=== PATIENT | female | born 1940 ===

== ENCOUNTER 2022-11-16 15:38 | Emergency (ER) | payer MEDICARE, SELFPAY ==
[2022-11-16 16:51] VITALS: BP 150/77; PULSE 71; RESP 14; TEMP 36.9; O2SAT 95
--- NOTE | 2022-11-16 19:04 | ED.GENADULT ---
HPI - General Adult General Chief complaint: Unspecified <EVERETTE Suarez Last Filed: 11/17/22 01:35> Stated complaint: thinks straight line has blood clot, will not draw <EVERETTE Suarez Last Filed: 11/17/22 01:35> Time Seen by Provider: 11/16/22 17:31 <EVERETTE Suarez Last Filed: 11/17/22 01:35> Source: patient <EVERETTE Suarez Last Filed: 11/17/22 01:35> Mode of arrival: ambulatory <EVERETTE Suarez Last Filed: 11/17/22 01:35> Limitations: no limitations <EVERETTE Suarez Last Filed: 11/17/22 01:35> History of Present Illness HPI narrative: This is an 82-year-old female who presents to the ED with chief complaint of a central line that is not drawing. Patient states that she has a central line for potassium infusions. She states she gets K+ infusions for chronic diarrhea. This is managed by her GI doctor. She states that the central line has not been able to draw for her home health nurse for the past 3 days. States she normally gets the potassium infusions every night and they try to draw blood from the lines every 3 days. She has no symptomatic complaints at this time. Denies chest pain, shortness of breath, neurologic symptoms. <EVERETTE Suarez Last Filed: 11/17/22 01:35> Related Data Allergies/adverse reactions: Allergies Allergy/AdvReac Type Severity Reaction Status Date / Time Penicillins Allergy Mild SWELLING Verified 08/11/11 18:27 <EVERETTE Suarez Last Filed: 11/17/22 01:35> Review of Systems Review of Systems: CONSTITUTIONAL: Denies fever, chills, or sweats. EYES: Denies visual changes, redness, or discharge. ENT: Denies rhinorrhea, congestion, sore throat, or otalgia. CARDIOVASCULAR: Denies chest pain, palpitations, or edema. RESPIRATORY: Denies cough or dyspnea. GASTROINTESTINAL: Denies abdominal pain, nausea, vomiting, or diarrhea. GENITOURINARY: Denies dysuria or hematuria. SKIN: Denies rash or itching. MUSCULOSKELETAL: Denies back pain, joint pain, or myalgia. NEUROLOGIC: Denies headache, numbness, dizziness, or weakness. PSYCHIATRIC: Denies anxiety or depression. <Bryn Umana PA-C - Last Filed: 11/17/22 01:35> [facility] Family History Family History: Family History (Updated 03/15/14 @ 07:13 by DOCTOR UNKNOWN) Mother Family history of coronary artery disease Other Family history of malignant neoplasm of bone <Bryn Umana PA-C - Last Filed: 11/17/22 01:35> Social History Social History: Social History Smoking status: Never smoker Alcohol intake: never <Bryn Umana PA-C - Last Filed: 11/17/22 01:35> Exam Narrative: GENERAL: Well-appearing, well-nourished, and in no acute distress. HEAD: Normocephalic, atraumatic. EYES: PERRLA and EOMI. ENT: Nares clear, no rhinorrhea or epistaxis. Mucous membranes moist. Oropharynx without tonsillar hypertrophy exudate or other lesions. NECK: Supple. No adenopathy or masses. CHEST: Subclavian central line in place, Well-appearing. No respiratory distress. Clear to auscultation. No wheezes rales or rhonchi HEART: Regular rate and rhythm. No murmur heard. Normal peripheral pulses. ABDOMEN: Soft, nontender, nondistended, normal active bowel sounds. EXTREMITIES: Normal range of motion. No edema. SKIN: Warm, dry, no rash. NEURO: Alert and oriented x3. No focal deficits. PSYCH: Normal mood and affect. <Bryn Umana PA-C - Last Filed: 11/17/22 01:35> Course [employer]OVEMENT CONSULTANT/PA Physician Supervision This is a was performed by both a physician and an APC. I performed all aspects of the MDM as documented w/ the following additions: 82-year-old presenting with clogged central line. line was flushed and was working appropriately. Potassium was 3.0 but the patient is capable of treating that at home. Patient discharged. We were able to clear the clot All questions answered. Patient in agreement w/ disposition. <Can Love,
[2022-11-16] MEDS: ACETAMINOPHEN 500 MG TABLET 1000 MG PO (19:35)
[2022-11-16 20:22] LABS: Basophils Absolute Auto 0.1 K/mm3 (0.0-0.1); Basophils Percent Auto 1.1 % (0.2-1.2); Eosinophils Absolute Auto 0.7 K/mm3 (0-0.3); Eosinophils Percent Auto 7.5 % (0-4.4); Hematocrit 30.1 % (37.0-47.0); Hemoglobin 9.6 g/dL (12.0-15.0); Immature Granulocyte Absolute 0.03 K/mm3 (0.00-0.031); Immature Granulocyte Percent A 0.3 % (0-0.5); Lymphocytes Absolute Auto 3.23 K/mm3 (0.9-3.2); Lymphocytes Percent Auto 34.3 % (18.3-44.2); Mean Corpuscular HGB Conc 31.9 g/dl (32-36); Mean Corpuscular Hemoglobin 27.6 pg (26-34); Mean Corpuscular Volume 86.5 fl (80-100); Mean Platelet Volume 9.6 fl (7.4-10.4); Monocytes Absolute Auto 0.6 K/mm3 (0.1-0.6); Monocytes Percent Auto 6.7 % (2.6-8.5); Neutrophils Absolute Auto 4.7 K/mm3 (1.3-6.7); Neutrophils Percent Auto 50.1 % (45.5-73.1); Platelet Count Result 202 k/mm3 (150-375); Red Blood Count 3.48 M/mm3 (4.2-5.4); Red Cell Distribution Width 19.6 % (11.5-14.5); White Blood Count 9.4 K/mm3 (4.5-10.0)
[2022-11-16 20:32] LABS: Alanine Aminotransferase 15 U/L (6-35); Albumin Level 4.1 g/dL (3.5-5.1); Alkaline Phosphatase 96 U/L (38-126); Anion Gap 8 mmol/L (8-16); Aspartate Amino Transferase 24 U/L (14-36); Bilirubin,Total 0.4 mg/dL (0.2-1.3); Blood Urea Nitrogen 20 mg/dL (7-17); Calcium 8.9 mg/dL (8.4-10.2); Carbon Dioxide 19 mmol/L (22-30); Chloride 111 mmol/L (98-107); Estimated CRCL calculation 26 ml/min; Estimated Glomerular Filt Rate 48; Glucose 111 mg/dL (65-110); Magnesium 1.8 mg/dL (1.6-2.3); Phosphorus 4.4 mg/dL (2.5-4.5); Sodium 138 mmol/L (137-145)
[2022-11-16 20:48] VITALS: BP 141/81; PULSE 70; RESP 18; O2SAT 98
== END 2022-11-16 20:50 | disposition home or self-care (01) ==
PROVIDERS: Emergency Provider Physician Assistant; PCP Internal Medicine
DX: T82.594A Other mechanical complication of infusion catheter, initial encounter (principal); K52.9 Noninfective gastroenteritis and colitis, unspecified; Y84.8 Other medical procedures as the cause of abnormal reaction of the patient, or of later complication, without mention of misadventure at the time of the procedure
CPT/HCPCS: 36415; 80053; 83735; 84100; 85025; 99283; A9270

== ENCOUNTER 2024-04-07 12:53 | Emergency (ER) | payer MEDICARE, SELFPAY ==
[2024-04-07] VITALS (8 sets, daily range): BP systolic 100–133; BP diastolic 50–81; PULSE 63–89; RESP 13–21; TEMP 36.2–36.6; O2SAT 94–100
--- NOTE | ~2024-04-07 | CT_ITS ---
EXAMINATION: CT brain wo con DATE: 04/07/2024 16:29 INDICATION: Headache. TECHNIQUE: Computed tomography (CT) of the head was performed without intravenous contrast. The mA wa s adjusted according to patient size. Iterative reconstruction technique was employed. The dose-lengt h product was 529.67 mGy-cm. COMPARISON: Brain MRI 08/15/2017 FINDINGS: There is no intracranial hemorrhage, acute infarction, or abnormal intracranial mass lesion . The ventricles are normal in size. There is mild mucosal thickening in the paranasal sinuses. There are likely changes of ocular lens replacement surgeries. There is a left otomastoid effusion. IMPRESSION: 1. Normal brain. Reviewed, dictated and finalized at location A. IMPRESSION: 1. Normal brain.
--- NOTE | ~2024-04-07 | XR_ITS ---
EXAMINATION: XR chest 2V DATE: 04/07/2024 16:21 INDICATION: Weakness TECHNIQUE: frontal and lateral views of the chest were obtained. COMPARISON: Chest CT dated 05/29/2016 FINDINGS: Mild hyperexpansion lungs consistent with emphysema better appreciated on prior CT. Again seen are nu merous scattered small bilateral calcified pulmonary nodules consistent with old granulomatous diseas e. There are airspace opacities in the right mid to upper lung which have linear pattern projecting o laisha the posterior right upper lobe on the lateral projection most likely atelectasis/scarring althoug h pneumonia not excludable. No pleural effusion or pneumothorax. Cardiomegaly. Compression fracture i n the upper thoracic spine, possibly T5, which is new since the CT from 8 years prior. Cholecystectom y clips in right upper quadrant. IMPRESSION: 1. Emphysema with opacities in the posterior segment of the right upper lobe with appearance favoring atelectasis over pneumonia. 2. Cardiomegaly. Reviewed, dictated and finalized at location B. IMPRESSION: 1. Emphysema with opacities in the posterior segment of the right upper lobe wi th appearance favoring atelectasis over pneumonia. 2. Cardiomegaly.
--- NOTE | 2024-04-07 15:44 | ECG_ITS ---
Test Date: 2024-04-07 16:44:31 Measurements Intervals Webb Rate: 87 P: 26 IN: 196 QRS: 101 QRSD: 140 T: 4 QT: 426 QTc: 514 Interpretive Statements SINUS RHYTHM RIGHT AXIS DEVIATION RIGHT BUNDLE BRANCH BLOCK MINIMAL Q WAVES- ANTEROLATERAL LEADS ABNORMAL ECG No previous ECG available for comparison Electronically Signed On 04-07-2024 18:44:00 CDT by Malvin Ayala D.O.
[2024-04-07 16:12] LABS: Basophils Absolute Auto 0.1 K/mm3 (0.0-0.1); Basophils Percent Auto 1.1 % (0.2-1.2); Eosinophils Absolute Auto 0.2 K/mm3 (0-0.3); Eosinophils Percent Auto 3.5 % (0-4.4); Hemoglobin 9.5 g/dL (12.0-15.0); Immature Granulocyte Absolute 0.01 K/mm3 (0.00-0.031); Immature Granulocyte Percent A 0.2 % (0-0.5); Lymphocytes Absolute Auto 0.81 K/mm3 (0.9-3.2); Lymphocytes Percent Auto 17.9 % (18.3-44.2); Mean Corpuscular HGB Conc 29.7 g/dl (32-36); Mean Corpuscular Hemoglobin 26.8 pg (26-34); Mean Corpuscular Volume 90.1 fl (80-100); Mean Platelet Volume 9.7 fl (7.4-10.4); Monocytes Absolute Auto 0.3 K/mm3 (0.1-0.6); Monocytes Percent Auto 7.3 % (2.6-8.5); Neutrophils Absolute Auto 3.2 K/mm3 (1.3-6.7); Platelet Count Result 227 k/mm3 (150-375); Red Blood Count 3.55 M/mm3 (4.2-5.4); Red Cell Distribution Width 18.6 % (11.5-14.5); White Blood Count 4.5 K/mm3 (4.5-10.0)
[2024-04-07 16:22] LABS: Alanine Aminotransferase 11 U/L (6-35); Albumin Level 3.4 g/dL (3.5-5.1); Alkaline Phosphatase 88 U/L (38-126); Anion Gap 11 mmol/L (4-12); Aspartate Amino Transferase 18 U/L (14-36); Bilirubin,Total 0.5 mg/dL (0.2-1.3); Blood Urea Nitrogen 25 mg/dL (7-17); Calcium 8.8 mg/dL (8.4-10.2); Carbon Dioxide 15 mmol/L (22-30); Chloride 113 mmol/L (98-107); Estimated CRCL calculation 15 ml/min; Estimated Glomerular Filt Rate 27; Glucose 103 mg/dL (65-110); Potassium 4.4 mmol/L (3.4-5.0); Sodium 139 mmol/L (137-145)
[2024-04-07 16:38] LABS: Hypochromasia 1+; Platelet Estimate Adequate (Adequate); Schistocytes None Seen
[2024-04-07 16:42] LABS: Anisocytosis 3+
[2024-04-07 16:48] LABS: Influenza A QL RT-PCR Negative (Negative); Influenza B QL RT-PCR Negative (Negative); SARS-CoV-2 RNA PCR Negative (Negative)
[2024-04-07 17:37] LABS: Add Urine Microscopic? YES; Appearance Urine Clear (Clear); Bacteria Urine None Seen /hpf; Bilirubin Urine Negative (Negative); Blood Urine Negative (Negative); Color Urine Yellow (Yellow); Glucose Urine UA Negative (Negative); Hyaline Casts Urine Present /lpf; Ketones Urine Trace mg/dL (Negative); Leukocyte Esterase Ur Negative LEU/UL (Negative); Nitrate Urine Negative (Negative); Protein Urine 1+ mg/dL (Negative); RBC Urine 0-2 /hpf (0-2); Specific Grav Ur 1.025 (1.001-1.035); Squamous Epithelial Cell Urine None Seen /hpf (Few); Urobilinogen Urine 0.2 mg/dL (<2.0); WBC Urine 0-5 /hpf (0-3)
--- NOTE | 2024-04-07 17:38 | ED.GENADULT ---
HPI - General Adult General Chief complaint: Weakness Stated complaint: weakness Time Seen by Provider: 04/07/24 15:51 History of Present Illness HPI narrative: Patient is an 84-year-old female who presents to the emergency department this afternoon complaining of generalized weakness and headache which started shortly prior to arrival to the emergency department. Patient states that she believes that she knows with cause was and states that she took her blood pressure medication prior to checking her blood pressure before taking the medication and lower did admit to much. Patient states that normally her PCP told her that her blood pressure should stay around 140 systolic and that is the best range for it, if it drops lower than that she starts to feel weak. Patient states that her blood pressure after she took her home medications dropped to 100 systolic which is too low for her. When EMS arrived they did get a blood pressure that was in the 90 systolic. Patient states that while waiting in the emergency department she feels much better now that her blood pressure is back in her room normal injured is currently requesting to be discharged. 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 Son is currently present at bedside and states that her primary care physician is treating her for this shingles in function and states patient symptoms have been improving in the past 24 hours with improvement of the swelling that was around her left. Patient denies any additional symptoms or concerns at this time. Related Data Allergies Allergy/AdvReac Type Severity Reaction Status Date / Time Penicillins Allergy Mild SWELLING Verified 04/07/24 16:51 gabapentin Allergy Swelling Verified 04/07/24 16:51 Review of Systems Review of Systems: All systems are reviewed and are negative unless stated otherwise in the HPI. [facility] Family History Family History Mother Family history of coronary artery disease Other Family history of malignant neoplasm of bone Social History Social History Smoking status: Never smoker Alcohol intake: never Exam Narrative: General: Alert, awake, afebrile, in no acute distress. HEENT: PERRL, no rhinorrhea, no post nasal drip, oropharynx clear, shingles involving the left V1 distribution, negative Vyas sign. Cardiovascular: Regular rate and rhythm, no murmurs, rubs or gallops, no peripheral edema. Respiratory: Clear to auscultation bilaterally, no tachypnea, no wheezing, no rhonchi, no rubs, no respiratory distress. Abdomen: Soft, nontender, nondistended, no rebound, no guarding, no peritoneal signs. Musculoskeletal: No joint swelling or deformity, normal muscle tone. Skin: No rashes or petechia, no signs of infection. Neurological: Alert and oriented to person, place, and time. Follows all commands. No focal deficits, speech is clear and fluent. Course Vital Signs Vital signs: Vital Signs Temperature 97.2 F L 04/07/24 13:06 Pulse Rate 88 04/07/24 13:06 Respiratory Rate 04/07/24 13:06 Blood Pressure 100/50 L 04/07/24 13:06 Pulse Oximetry 100 04/07/24 13:06 Oxygen Delivery Nasal Cannula 04/07/24 13:06 Oxygen Flow Rate 2 04/07/24 13:06 Temperature 97.9 F 04/07/24 17:54 Pulse Rate 88 04/07/24 17:54 Respiratory Rate 20 04/07/24 17:54 Blood Pressure 133/81 04/07/24 17:54 Pulse Oximetry 100 04/07/24 17:54 Oxygen Delivery Nasal Cannula 04/07/24 16:50 Oxygen Flow Rate 2 04/07/24 16:50 Medical Decision Making MDM Narrative Medical decision making narrative: The patient was evaluated by myself in the emergency department. History is obtained from patient who is an independent historian and physical exam was performed. External medical records were reviewed at this time. IV was established an
== END 2024-04-07 17:57 | disposition home or self-care (01) ==
PROVIDERS: Student in an Organized Health Care Education/Training Program; Emergency Provider Emergency Medicine; PCP Internal Medicine
DX: R53.1 Weakness (principal); R51.9 Headache, unspecified; B02.30 Zoster ocular disease, unspecified; E86.0 Dehydration; Z20.822 Contact with and (suspected) exposure to COVID-19
CPT/HCPCS: 36415; 70450; 71046; 80053; 81001; 85025; 87636; 93005; 99284